=== PATIENT | male | born 1990 | race Caucasian/White ===

== ENCOUNTER 2016-02-25 12:23 | Emergency (ER) | payer OTHER ==
[~2016-02-25] VITALS: Ht 182.9 cm; Wt 111.4 kg
[2016-02-25 12:36] VITALS: BP 144/97; PULSE 79; RESP 18; O2SAT 99
--- NOTE | 2016-02-25 13:25 | ED.REPORT ---
HPI-Abd Pain M Under 40 Date of Service Feb 25, 2016 ED Provider: Patient is a 25 year old male who reports to the ER complaining of lower abdominal pain onset three hours ago. Pt feels an extreme need to urinate but is unable to. Pt has never had kidney stones. Pt denies vomiting and hematuria. Nursing Notes Stated Complaint: RIGHT SIDE PAIN Chief Complaint: Male Abdominal Pain Nursing Notes Reviewed: Yes Allergies: Coded Allergies: No Known Allergies (Unverified , 02/25/16) General Time Seen by MD: 13:24 Chief Complaint Abdominal pain (lower) Hx Obtained From: Patient Arrived By: Walk-in Sudden in Onset?: Yes Onset Occurred: 1 - 4 hours ago Symptom Duration: Since onset Location: : Abdomen lower Severity: Current: Mild Past Medical History Past Medical History Denies Review of Systems GI: Reports: Abdominal pain (lower), Denies: Vomiting Male: Reports Urinary urgency, Denies Hematuria Complete sys rev & neg: except as marked. Physical Exam Initial Vital Signs Vital Signs (First) Date Time Temp Pulse Resp B/P Pulse Ox O2 Delivery O2 Flow Rate FiO2 02/25/16 12:36 35.4 79 18 144/97 99 Room Air Initial VS: Reviewed Head / Eyes: Atraumatic, Normocephalic, PERRL ENT: Mucous membranes moist, Conjunctiva normal, No scleral icterus Skin: Warm, Dry, No cyanosis Psychiatric: Mood/affect normal, Behavior normal, Normal thought content General/Constitutional: Awake Distress / Hydration: Positive: Distress mild Behavior: Positive: Anxious Respiratory / Chest: Atraumatic, Breath sounds NL, Breath sounds = bilat, No respiratory distress Cardiovascular: Heart rate NL, Regular rhythm, Heart sounds NL Abdomen: Soft, No guarding, No rebound, BS normoactive, No distention, No palpable mass, No pulsatile mass Male Genitourinary: Atraumatic, Inspection NL, Penis NL Interpretation & Diagnostics Lab Results Interpretation Result Diagram: 02/25/16 1345 02/25/16 1345 Test 02/25/16 13:37 02/25/16 13:45 Urine Color Dark yellow (YELLOW) Urine Appearance Turbid (CLEAR,HAZY) Urine pH 5.5 (5.0-8.0) Urine Specific [place] 1.030 (1.003-1.035) Urine Protein Tracemg/dL (NEG,TRACE) Urine Glucose (UA) Negativemg/dL (NEGATIVE) Urine Ketones Tracemg/dL (NEGATIVE) Urine Occult Blood Negative (NEGATIVE) Urine Nitrite Negative (NEGATIVE) Urine Bilirubin Negative (NEGATIVE) Urine Urobilinogen Normalmg/dL (NORMAL) Urine Leukocyte Esterase Negative (NEGATIVE) Urine RBC 0-2/hpf (0-2) Urine WBC 0-5/hpf (0-5) Urine Epithelial Cells Occasional/hpf (NONE-MOD) Urine Crystals Amorphous urates (NONE Urine Bacteria Moderate/hpf (NONE-FEW) Urine Hyaline Casts None/lpf (NONE) Urine Granular Casts None seen (NONE SEEN) Urine Waxy Casts None seen (NONE SEEN) Urine Red Blood Cell Casts None seen (NONE SEEN) Urine White Blood Cell Casts None seen (NONE SEEN) Urine Mucus None seen (None Seen) Urine Trichomonas None seen (NONE SEEN) Urine Yeast None (NONE SEEN) Urinalysis Comment Urine Culture Reflexed Indicated White Blood Count 11.7th/mm3 (3.8-10.1) Red Blood Count 4.72mil/mm3 (4.40-5.80) Hemoglobin 14.3g/dL (13.8-17.2) Hematocrit 39.9% (41.0-50.0) Mean Corpuscular Volume 84.5fL (81-100) Mean Corpuscular Hemoglobin 30.3pg (27.0-35.0) Mean Corpuscular Hemoglobin Concent 35.8% (32.0-37.0) Red Cell Distribution Width 12.0% (12.3-15.4) Platelet Count 254bil/L (150-400) Neutrophils (%) (Auto) 76.1% (40-74) Lymphocytes (%) (Auto) 15.8% (14-46) Monocytes (%) (Auto) 7.1% (4-12) Eosinophils (%) (Auto) 0.5% (0-5) Basophils (%) (Auto) 0.3% (0-3) Sodium Level 136mEq/L (134-144) Potassium Level 3.4mEq/L (3.5-5.2) Chloride Level 98mEq/L (97-108) Carbon Dioxide Level 21mmol/L (18-29) Blood Urea Nitrogen 10mg/dL (6-20) Creatinine 0.75mg/dL (0.76-1.27) Estimat Glomerular Filtration Rate 136mL/min (>59) Glucose Level 128mg/dL (60-99) Calcium Level 9.1mg/dL (8.5-10.1) Magnesium Level 2.0mg/dL (1.6-2.6) Total Bilirubin 0.3mg/dL (0.0-1.2) Aspartate Amino Transf (AST/SGOT) 45U/L (0-50) Alanine Aminotransferase (ALT/SGPT) 116U/L (0-44) Alkaline Phosphatase 82U/L (25-150) Total Protein 7.4g/dL (6.4-8.4) Albumin 4.2g/dL (3.4-5.0) Lipase 14U/L (13-60) Hold Platt Top Tube Received (Received) Lab Results Interpretation: Urine Dip: positive for proteins, urobininogen, bilirubin and blood Re-Eval/Medical Decision Re-Evaluation/Progress : Time of Eval: 14:32 Re-Evaluation/Progress Note: Pt rechecked. Informed pt of diagnosis of kidney stone and plan for treatment. Pt understands and agrees with plan. F/U and RTER warnings given. All questions addressed. Counseled Regarding: Diagnosis, Lab results, Need for follow-up, When/why to return to ED Patient Discharge & Departure Primary Impression: Ureterolithiasis Disposition: Home Discharge Condition All VS Reviewed: Yes Condition: Stable Patient Instructions: Renal Colic (ED) Additional Instructions: Thank you for seeking care at the ER. Your CT scan shows evidence of a kidney stone. Drink plenty of fluids. Use the strainer when urinating to catch the stone. Take ibuprofen 800 mg every 8 hours. Take tamsulosin once daily for 5 days. Use hydrocodone/APAP 5/325 1-3 as needed for pain every 4 hours. You should follow-up with your primary doctor if your pain continues. You should return to the ED if you experience increased or worsening symptoms. Referrals: Thalia Conway MD (PCP) Paula Campbell MD 3 to 4 Days Scribe Attestation Portion of this note were transcribed by Edyta Flannery and Chelle Anglin. I, Dr. Weaver, personally performed the history, physcial exam, and medical decision- making: I reviewed and confirmed the accuracy for the information in the transcribed note. Signed by: ben Sheffield, 02/21/16 copies to: Thalia Conway MD, Kirk H MD Feb 25, 2016 13:25 CHELLE ANGLIN Feb 25, 2016 13:39
[2016-02-25] MEDS ORDERED: 0.9% Sodium Chloride 1,000 ML IV ONE (13:28)
[2016-02-25] MEDS ORDERED: Ondansetron 2 mg/mL 2 mL Inj IVPUSH PRN (13:30)
[2016-02-25] MEDS ORDERED: HYDROmorphone 1 mg/mL Inj IVPUSH PRN (13:30)
[2016-02-25 13:50] LABS: APPEARANCE,URINE TURBID (CLEAR,HAZY); COLOR,URINE DARK YELLOW (YELLOW); OCCULT BLOOD,URINE NEGATIVE (NEGATIVE); PH,URINE 5.5 (5.0-8.0); UROBILINOGEN,URINE NORMAL (NORMAL)
[2016-02-25 13:51] LABS: BASOPHILS % (AUTO) 0.3 % (0-3); EOSINOPHILS % (AUTO) 0.5 % (0-5); MONOCYTES % (AUTO) 7.1 % (4-12); Mean Corpuscular Hemoglobin 30.3 pg (27.0-35.0); Mean Corpuscular Volume 84.5 fL (81-100); NEUTROPHILS % (AUTO) 76.1 % (40-74); Platelet Count 254 bil/L (150-400)
--- NOTE | 2016-02-25 14:28 | DRSVH ---
PROCEDURE: CT KUB ([id number]) INDICATIONS: right flank pain TECHNIQUE: Noncontrast 5 mm thick sections acquired from the diaphragms to the symphysis. 5 mm thick coronal an d sagittal reformats were then performed. For radiation dose reduction, the following was used: aut omated exposure control, adjustment of mA and/or kV according to patient size. COMPARISON: None. FINDINGS: Image quality: Excellent. Lung bases: Lung bases are clear. Heart size is normal. Urinary system: Both kidneys are normal in size. No kidney stones. No hydronephrosis or perinephri c fat stranding. Both ureters appear non-dilated throughout their expected courses. Bladder wall th ickness is normal; no calcified bladder stones. Other solid organs: Liver and spleen are normal in size. Gallbladder unremarkable. Pancreas is nor mal in contours. No adrenal nodules. Peritoneum and bowel: Unenhanced bowel loops demonstrate normal wall thickness and caliber. No free fluid or air. Normal appendix. Nodes and vessels: No retroperitoneal or mesenteric adenopathy by size criteria. Aorta and inferior vena cava are normal in caliber. Abdominal wall: No ventral hernias. Pelvis: No free pelvic fluid. No inguinal hernias or adenopathy. Bones: No suspicious bony lesions. No vertebral body compression fractures. IMPRESSION: No acute abnormality. No urolithiasis or evidence of urinary obstruction. Normal appendix. Dictated by: Ronaldo Ramirez M.D. on 02/25/2016 at 14:26 Approved by: Ronaldo Ramirez M.D. on 02/25/2016 at 14:26
[2016-02-25] MEDS ORDERED: OXYC1TAB24 PO (14:44)
[2016-02-25] MEDS ORDERED: TAMS0.4C98 PO (14:44)
[2016-02-25 14:45] VITALS: BP 139/45; PULSE 90; RESP 15; O2SAT 96
[2016-02-25 15:01] VITALS: BP 139/45; PULSE 90; RESP 15; O2SAT 96
== END 2016-02-25 15:01 | disposition home or self-care (01) ==
LOC: SED 12:23
DX: N20.1 Calculus of ureter (principal)
CPT/HCPCS: 36415; 51798; 74176; 80053; 81000; 83690; 83735; 85025; 87086; 96361; 96374; 96375; 99285; J1170; J2405; J7030